=== PATIENT | male | born 1945 | race Caucasian/White ===

== ENCOUNTER 2023-07-20 07:53 | Day surgery (SDC) | payer OTHER, MEDICARE ==
[2023-07-17 15:48] VITALS: BMI 27.5
[2023-07-20 10:13] VITALS: RESP 16; TEMP 97.6
[2023-07-20 10:31] VITALS: BP 131/65; PULSE 78
== END 2023-07-20 10:35 | disposition home or self-care (01) ==
LOC: FASU-ENDO 07:53
PROVIDERS: ATTEND Internal Medicine Gastroenterology
PROC: 0DBL8ZX Excision of Transverse Colon, Via Natural or Artificial Opening Endoscopic, Diagnostic (ICD-10-PCS; principal; 2023-07-20 09:36)
DX: Z12.11 Encounter for screening for malignant neoplasm of colon (principal); D12.3 Benign neoplasm of transverse colon; K64.1 Second degree hemorrhoids; K57.30 Diverticulosis of large intestine without perforation or abscess without bleeding; Z86.010 Personal history of colon polyps
CPT/HCPCS: 88305-TC